=== PATIENT | male | born 1960 | race African-American/Black ===

== ENCOUNTER 2018-05-26 21:01 | Emergency (ER) | payer MEDICARE, MEDICAID ==
[~2018-05-26] VITALS: Ht 177.8 cm; Wt 100.0 kg
[2018-05-26 21:02] VITALS: BP 134/91
== END 2018-05-26 21:34 | disposition left against medical advice (07) ==
LOC: ER 21:01
DX: Z53.21 Procedure and treatment not carried out due to patient leaving prior to being seen by health care provider (principal)

== ENCOUNTER 2019-12-29 15:36 | Emergency (ER) | payer MEDICARE, MEDICAID ==
[~2019-12-29] VITALS: Ht 175.3 cm; Wt 91.0 kg
[2019-12-29 15:39] VITALS: BP 118/70
== END 2019-12-29 15:57 | disposition left against medical advice (07) ==
LOC: ER 15:36
DX: Z53.21 Procedure and treatment not carried out due to patient leaving prior to being seen by health care provider (principal)